=== PATIENT | male | born 1990 | race Asian ===

== ENCOUNTER 2017-03-25 07:05 | Observation (INO) | payer OTHER ==
[~2017-03-25] VITALS: Ht 185.4 cm; Wt 125.2 kg
[2017-03-25] MEDS ORDERED: HYDR-883 PO (08:06)
[2017-03-25] MEDS ORDERED: SODIUM CHLORIDE 0.9% 1,000 ML IV ONE ×2 (08:51)
[2017-03-25] MEDS ORDERED: SODIUM CHLORIDE FLUSH 10ML SYR IVF ONE (09:00)
[2017-03-25] MEDS ORDERED: SODIUM CHLORIDE FLUSH 10ML SYR IVF PRN (09:00)
[2017-03-25] MEDS ORDERED: HYDROmorphone 1 MG/ML, 1ML IVPush PRN (09:00)
[2017-03-25] MEDS ORDERED: ONDANSETRON 2MG/ML, 2ML IVPush PRN ×2 (09:00→22:00)
[2017-03-25] MEDS ORDERED: HYDROmorphone 1 MG/ML, 1ML ONE (09:35)
[2017-03-25] MEDS ORDERED: ONDANSETRON 2MG/ML, 2ML ONE ×2 (09:35→15:24)
[2017-03-25 10:29] VITALS: BP 134/85
[2017-03-25] MEDS ORDERED: OXYMETAZOLINE NASAL SPRAY 0.05%, 15ML ONE (13:16)
[2017-03-25] MEDS ORDERED: FENTANYL PF 250 MCG/5ML ONE (13:19)
[2017-03-25] MEDS ORDERED: MIDAZOLAM 1 MG/ML, 2ML ONE (13:19)
[2017-03-25] MEDS ORDERED: NEO/BACI/POLY/HC OINT 15GM ONE (13:21)
[2017-03-25] MEDS ORDERED: CHLORHEXIDINE GLUCONATE MOUTHWASH 0.12%, 473ML ONE (13:23)
[2017-03-25] MEDS ORDERED: SCOPOLAMINE PATCH, 1.5MG PATCH.TD72 TD ONE (13:36)
[2017-03-25] MEDS ORDERED: DEXMEDETOMIDINE 200 MCG/2 ML ONE (13:39)
[2017-03-25] MEDS ORDERED: CLINDAMYCIN 150 MG/ML, 6ML ONE (14:05)
[2017-03-25] MEDS ORDERED: HYDROmorphone 2 MG/ML, 1ML ONE (15:15)
[2017-03-25] MEDS ORDERED: FENTANYL PF 100 MCG/2ML ONE (15:15)
[2017-03-25] MEDS ORDERED: HYDROcodone/APAP 7.5-325MG/15ML UDC ONE (15:17)
[2017-03-25] MEDS: HYDROmorphone 1 MG/ML, 1ML IV PRN ×2 (15:19→16:24)
[2017-03-25] MEDS ORDERED: ROCURONIUM 10 MG/ML ONE (15:24)
[2017-03-25] MEDS ORDERED: DEXAMETHASONE 4 MG/ML, 1ML ONE (15:24)
[2017-03-25] MEDS ORDERED: PROPOFOL 10 MG/ML, 20ML ONE (15:24)
[2017-03-25] MEDS ORDERED: SUCCINYLCHOLINE 20 MG/ML, 10ML ONE (15:24)
[2017-03-25] MEDS: FENTANYL PF 100 MCG/2ML IV PRN ×2 (15:27→15:51)
[2017-03-25] MEDS ORDERED: HYDROcodone/APAP 7.5-325MG/15ML UDC PO PRN (15:30)
[2017-03-25] MEDS ORDERED: hydrALAzine 20 MG/ML, 1ML IV PRN (15:30)
[2017-03-25] MEDS ORDERED: METOPROLOL 1 MG/ML, 5ML IV PRN (15:30)
[2017-03-25] MEDS ORDERED: MEPERIDINE/PF 25MG/0.5ML IVPush PRN (15:30)
[2017-03-25] MEDS ORDERED: HALOPERIDOL 5 MG/ML IV PRN (15:30)
[2017-03-25] MEDS: morphine SULFATE 10 MG/ML, 1ML IV PRN ×2 (17:55→21:34)
[2017-03-25] MEDS: LACTATED RINGERS 1,000 ML IV SCH ×2 (17:55→21:34)
[2017-03-25] MEDS ORDERED: ACETAMINOPHEN 650 MG/20.3 ML UDC PO PRN (18:00)
[2017-03-25] MEDS ORDERED: ONDANSETRON 2MG/ML, 2ML IV PRN (19:30)
[2017-03-25] MEDS: OXYcodone 5 MG/5 ML ORAL.SOL UDC PO PRN (20:20)
[2017-03-25 20:27] VITALS: BP 129/84
[2017-03-25 23:24] VITALS: BP 153/72
[2017-03-26] MEDS: OXYcodone 5 MG/5 ML ORAL.SOL UDC PO PRN ×3 (00:30→09:52)
[2017-03-26 03:40] VITALS: BP 137/73
[2017-03-26 06:33] VITALS: BP 145/73
[2017-03-26 10:00] VITALS: BP 142/69
[2017-03-26] MEDS ORDERED: OXYC500S2 PO (11:08)
== END 2017-03-26 11:36 | disposition home or self-care (01) ==
LOC: ED 07:56 → INTOOBSV 08:51 → EDIP 08:51 → 4NOR 10:18 → DCLOUNGE 03-26 10:44
PROVIDERS: ADMIT Emergency Medicine; ATTEND Emergency Medicine
DX: S02.641A Fracture of ramus of right mandible, initial encounter for closed fracture (principal); X58.XXXA Exposure to other specified factors, initial encounter; Y92.89 Other specified places as the place of occurrence of the external cause; Y93.89 Activity, other specified; Y99.8 Other external cause status
CPT/HCPCS: 21453; 70486; 96374; 96375; 99285; C1713; G0378; J0330; J1100; J1170; J2250; J2270; J2405; J2704; J3010; J7030; J7120

== ENCOUNTER 2017-04-22 11:01 | Emergency (ER) | payer OTHER ==
[~2017-04-22] VITALS: Ht 185.4 cm; Wt 117.3 kg
[2017-04-22 11:03] VITALS: BP 146/77
== END 2017-04-22 11:57 ==
LOC: ED 11:15
DX: Z04.8 Encounter for examination and observation for other specified reasons (principal); Z53.21 Procedure and treatment not carried out due to patient leaving prior to being seen by health care provider

== ENCOUNTER → 2017-04-22 | Outpatient (CLI) | payer OTHER ==
[~2017-04-22] MED LIST: HYDR-883 PO; OXYC500S2 PO
== END | disposition home or self-care (01) ==
LOC: RAD 11:35
PROVIDERS: ATTEND Otolaryngology Facial Plastic Surgery
DX: S02.641A Fracture of ramus of right mandible, initial encounter for closed fracture (principal)
CPT/HCPCS: 70100

== ENCOUNTER 2017-04-29 10:47 | Day surgery (SDC) | payer OTHER ==
[~2017-04-29] VITALS: Ht 185.4 cm; Wt 120.5 kg
[2017-04-29] MEDS ORDERED: LACTATED RINGERS 1,000 ML IV SCH (11:23)
[2017-04-29 11:42] VITALS: BP 114/77
[2017-04-29] MEDS ORDERED: NONE PER PT (11:42)
[2017-04-29] MEDS ORDERED: OXYMETAZOLINE NASAL SPRAY 0.05%, 15ML ONE (12:41)
[2017-04-29] MEDS ORDERED: NEO/BACI/POLY/HC OINT 15GM ONE (12:41)
[2017-04-29] MEDS ORDERED: LIDOCAINE/PF 1%-EPI 1:200K, 30ML ONE (12:42)
[2017-04-29] MEDS ORDERED: PROPOFOL 10 MG/ML, 20ML ONE (13:20)
[2017-04-29] MEDS ORDERED: KETAMINE 100 MG/ML, 5ML ONE (13:20)
[2017-04-29] MEDS ORDERED: ACETAMINOPHEN 325 MG TABLET ONE (13:53)
[2017-04-29] MEDS ORDERED: ACETAMINOPHEN 650 MG/20.3 ML UDC ONE (13:53)
[2017-04-29] MEDS ORDERED: FENTANYL PF 100 MCG/2ML IV PRN (14:00)
[2017-04-29] MEDS ORDERED: ALBUTEROL SULFATE 2.5 MG/3 ML NPPB PRN (14:00)
[2017-04-29] MEDS ORDERED: ONDANSETRON 2MG/ML, 2ML IVPush PRN (14:00)
[2017-04-29] MEDS ORDERED: ACETAMINOPHEN 325 MG TABLET PO PRN (14:00)
[2017-04-29] MEDS ORDERED: hydrALAzine 20 MG/ML, 1ML IV PRN (14:00)
[2017-04-29] MEDS ORDERED: METOPROLOL 1 MG/ML, 5ML IV PRN (14:00)
[2017-04-29] MEDS ORDERED: OXYcodone 5 MG/5 ML ORAL.SOL UDC PO PRN (14:00)
== END 2017-04-29 15:05 | disposition home or self-care (01) ==
LOC: OUT 10:47
PROVIDERS: ATTEND Otolaryngology Facial Plastic Surgery
DX: S02.641A Fracture of ramus of right mandible, initial encounter for closed fracture (principal); X58.XXXA Exposure to other specified factors, initial encounter; Y93.9 Activity, unspecified; Y92.9 Unspecified place or not applicable; Y99.9 Unspecified external cause status
CPT/HCPCS: 20670; J2250; J2704; J3010; J3490; J7120

== ENCOUNTER 2018-07-28 09:48 | Emergency (ER) | payer OTHER ==
[~2018-07-28] VITALS: Ht 182.9 cm; Wt 125.0 kg
[~2018-07-28 09:48] MED LIST changes: +NONE PER PT
[2018-07-28] MEDS ORDERED: IBUPROFEN 200 MG TABLET ONE (10:26)
[2018-07-28] MEDS ORDERED: CYCLOBENZAPRINE 10 MG TABLET ONE (10:26)
[2018-07-28] MEDS ORDERED: CYCLOBENZAPRINE 10 MG TABLET PO ONE (10:30)
[2018-07-28] MEDS ORDERED: IBUPROFEN 200 MG TABLET PO ONE (10:30)
[2018-07-28 11:09] LABS: MICROSCOPIC NOT IND
[2018-07-28 11:10] VITALS: BP 124/69
[2018-07-28 11:12] LABS: CULTURE INDICATED? NO
== END 2018-07-28 11:31 | disposition home or self-care (01) ==
LOC: ED 11:24
DX: M54.5 Low back pain (principal); M54.6 Pain in thoracic spine
CPT/HCPCS: 74018; 81003; 99285